=== PATIENT | female | born 1995 | race Two or more races ===

== ENCOUNTER 2022-04-07 00:45 | Emergency (ER) | payer OTHER ==
[~2022-04-07] VITALS: Ht 152.4 cm; Wt 167.0 kg
[2022-04-07] MEDS ORDERED: DexAMETHasone SOD PHOS 10MG/1ML VIAL INJ IV ONE (01:45)
[2022-04-07 03:55] VITALS: BP 119/56
== END 2022-04-07 04:08 | disposition home or self-care (01) ==
LOC: EDBD 00:45 → ER 00:45
DX: I71.019 Dissection of thoracic aorta, unspecified (principal); J45.909 Unspecified asthma, uncomplicated
CPT/HCPCS: 93005; 96374; 99283; J1100